=== PATIENT | female | born 1950 | race Caucasian/White ===

== ENCOUNTER 2025-04-12 08:08 | Day surgery (SDC) | payer MEDICARE ==
[~2025-04-12] VITALS: Ht 154.9 cm; Wt 46.0 kg
[~2025-04-12 08:08] MED LIST: ATOR1TAB19 PO; BRIM0.2S13; DORZ2SOL5; MIDAZOLAM INJ 2 MG/2 ML VIAL As Ordered ONE; PHENYLEPHRINE 10% OPHTH SOL 5ML OS PRN; VALS40TA9 PO
[2025-04-12] MEDS: OFLOXACIN 0.3 % (OCUFLOX) OPTH SOL 5ML OS ONE (09:23)
[2025-04-12] MEDS: LIDOCAINE 3.5% 1 ML OPHTH TOPICAL GEL OU ONE (09:23)
[2025-04-12] MEDS: PHENYLEPHRINE 2.5% OPHTH SOL 2ML OS SCH (09:24)
[2025-04-12] MEDS: CYCLOPENTOLATE 1% OPHTH SOLN 2 ML BTL OS SCH (09:24)
[2025-04-12] MEDS: TROPICAMIDE 1% OPHTH SOLN 15ML OS SCH (09:24)
[2025-04-12] MEDS: LIDOCAINE 1% SDV 5 ML VIAL As Ordered ONE (10:00)
[2025-04-12] MEDS: CEFUROXIME 1 MG/0.1 ML INTRACAMERAL INJ As Ordered ONE (10:00)
[2025-04-12] MEDS: BSS IRRIG/VANCO(10MG)/TOBRA(5MG)/EPINEPH(1:1000-0.5CC)500ML BAG-ORONLY As Ordered ONE (10:00)
[2025-04-12] MEDS: DUOVISC (0.50 ML VISCOAT/0.85 ML PROVISC) OPHTH KIT As Ordered ONE (10:00)
[2025-04-12 10:10] VITALS: BP 140/82; TEMP 97; O2SAT 97
== END 2025-04-12 10:25 | disposition home or self-care (01) ==
LOC: M SDC 08:08
PROVIDERS: ATTEND Ophthalmology
DX: H40.1121 Primary open-angle glaucoma, left eye, mild stage (principal); H25.12 Age-related nuclear cataract, left eye; I10 Essential (primary) hypertension; E78.00 Pure hypercholesterolemia, unspecified; Z79.899 Other long term (current) drug therapy; Z88.0 Allergy status to penicillin
CPT/HCPCS: 66991; C1783; J0697; J2250; J3010; V2632